=== PATIENT | male | born 1970 | race African-American/Black ===

== ENCOUNTER 2017-01-20 18:38 | Emergency (ER) | payer OTHER ==
[~2017-01-20] VITALS: Ht 180.3 cm; Wt 69.6 kg
[~2017-01-20 18:38] MED LIST: Coumadin dosing per PO; Habitrol,Nicoderm CQ TD; NOHOMEMEDS; Xanax PO; Zestril,Prinivil PO
[2017-01-20 22:41] VITALS: BP 148/98
== END 2017-01-20 22:44 | disposition home or self-care (01) ==
LOC: RME 18:38 → EME 18:38 → RME 22:44
DX: S20.219A Contusion of unspecified front wall of thorax, initial encounter (principal); M94.0 Chondrocostal junction syndrome [Tietze]; M62.838 Other muscle spasm; V43.52XA Car driver injured in collision with other type car in traffic accident, initial encounter; Y92.410 Unspecified street and highway as the place of occurrence of the external cause; Z79.01 Long term (current) use of anticoagulants; F17.200 Nicotine dependence, unspecified, uncomplicated
CPT/HCPCS: 71020; 99281; 99283; J1885; J7512